=== PATIENT | female | born 1990 | race Caucasian/White ===

== ENCOUNTER 2017-08-08 10:24 | Emergency (ER) | payer OTHER, MEDICAID | END 2017-08-08 12:23 | disposition home or self-care (01) | LOC: E/R 12:23 | DX: S92.354A Nondisplaced fracture of fifth metatarsal bone, right foot, initial encounter for closed fracture (principal); X58.XXXA Exposure to other specified factors, initial encounter; Y92.9 Unspecified place or not applicable; Z85.53 Personal history of malignant neoplasm of renal pelvis; Z87.891 Personal history of nicotine dependence | CPT/HCPCS: 29515; 73630; 99283-25 ==

== ENCOUNTER 2017-11-14 13:21 | Emergency (ER) | payer SELFPAY, OTHER | END 2017-11-14 16:45 | disposition left against medical advice (07) | LOC: FTE 13:21 | DX: Z53.21 Procedure and treatment not carried out due to patient leaving prior to being seen by health care provider (principal) ==